=== PATIENT | female | born 1975 | race American Indian/Alaskan Native ===

== ENCOUNTER 2019-02-27 07:38 | Day surgery (SDC) | payer OTHER ==
--- NOTE | 2019-02-26 16:43 | History and Physical Report ---
History of Present Illness Date of examination: 02/23/19 Date of admission: 02/27/19 Chief complaint: here for BTL History of present illness: Visit Type: Pre-Op CC: pre op. History of Present Illness: pt presents for pre op visit ......................................................................Jankichristian Castanon February 23, 2019 9:43 AM Pt desires sterilization. All risk/benefits/alternatives were d/w pt and questions were addressed and answered. She desires removal of the tubes bilaterally. Consents signed and placed on the chart. Pt currently has an IUD in place and desires removal at time of the surgery as well. Again all questions were addressed and answered. Consents given to pt to present at time of surgery. 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 of genital herpes: yes Hx of STD: HSV Other: I/II Active Medications (reviewed today): PROBIOTIC () MULTI VITAMINS () ZOMIG TABLET (ZOLMITRIPTAN TABS) ACYCLOVIR 400 MG ORAL TABLET (ACYCLOVIR) 1 po bid SYNTHRIOD () 100 mcg qdaily Current Allergies (reviewed today): No known allergies Past Medical History: Reviewed history from 11/11/2017 and no changes required: Hyperthyroidism-Graves DZ Past Surgical History: Reviewed history from 11/11/2017 and no changes required: positive-thyroidectomy Social History: Reviewed history from 11/11/2017 and no changes required: Patient is single-engaged does not plan to Smoking History: Patient has never smoked. [facility] Risk Factors: Smoked Tobacco Use: Never smoker Smokeless Tobacco Use: Never Drug use: no HIV high-risk behavior: no Alcohol use: yes Exercise: no Seatbelt use: 100 % PAP Smear History: Date of Last PAP Smear: 11/24/2018 Mammogram History: Date of Last Mammogram: 11/07/2018 Results: Normal Bilateral, per pt Review of Systems General Denies fever, chills, sweats, anorexia, fatigue, weakness, malaise, weight loss and sleep disorder. Denies nausea, vomiting, headache, swelling of legs, abdominal pain, vaginal discharge, vaginal bleeding and contractions. Denies vaginal discharge, incontinence, dysuria, hematuria, urinary frequency, amenorrhea, menorrhagia, abnormal vaginal bleeding, pelvic pain, genital sores, decreased libido, painful periods, painful sex, urinary urgency, hot flashes, vaginal dryness, vaginal itching and vaginal odor. CV Denies chest pains, palpitations, syncope, dyspnea on exertion, orthopnea, PND and peripheral edema. Resp Denies cough, dyspnea at rest, excessive sputum, hemoptysis, wheezing and pleurisy. GI Denies nausea, vomiting, diarrhea, constipation, change in bowel habits, abdominal pain, melena, hematochezia, jaundice, gas/bloating, indigestion/heartburn, dysphagia and odynophagia. Endo Denies cold intolerance, heat intolerance, polydipsia, polyphagia, polyuria and unusual weight change. Breast Denies left breast lump, right breast lump, nipple discharge, bloody discharge from nipple, breast pain, abnormal mammogram and breast enlargement. MS Denies back pain, joint pain, joint swelling, muscle cramps, muscle weakness, stiffness, arthritis, sciatica, restless legs, leg pain at night and leg pain with exertion. Derm Denies rash, itching, dryness and suspicious lesions. Neuro Denies paralysis, paresthesias, headache, seizures, tremors, vertigo, transient blindness, frequent falls, frequent headaches and difficulty walking. Psych Denies depression, anxiety, irritability and mood swings. Eyes Denies blurring, diplopia, irritation, discharge, vision loss, eye pain and photophobia. ENT Denies earache, ear discharge, tinnitus, decreased hearing, nasal congestion, nosebleeds, sore throat and hoarseness. Allergy Denies urticaria, allergic rash, hay fever and recurrent infections. Heme Denies abnormal bruising, bleeding and enlarged lymph nodes. 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 denies: abnormal PAP smear Family/Genetic History: other (see hpi) Social history: no significant social history, single Medications and Allergies Allergies Allergy/AdvReac Type Severity Reaction Status Date / Time No Known Allergies Allergy Verified 02/26/19 09:54 Home Medications Medication Instructions Recorded Confirmed Last Taken Type Levothyroxine [Synthroid] 112 mcg PO QAM 02/26/19 02/26/19 Unknown History Multivitamin Tab [Multiple Vitamin 1 each PO QDAY 02/26/19 02/26/19 Unknown History TAB (Theragran)] Zolmitriptan [Zomig] 2.5 mg PO ONCE PRN 02/26/19 02/26/19 Unknown History Review of Systems All systems: negative - Physical Exam Cardiovascular: Normal S1, Normal S2 Lungs: Positive: Clear to auscultation, Normal air movement Abdomen: Positive: normal appearance, soft. Negative: distention, tenderness, guarding Genitourinary (Female): Positive: other (deferred until EUA) Results All other labs normal. Assessment and Plan - Patient Problems (1) Encounter for sterilization Status: Acute Plan to address problem: -admit -prepare for salpingectomy(removal of both tubes) -consent signed and placed on the chart. (2) Thyroid disease Status: Acute Plan to address problem: -stable on medications
[~2019-02-27 07:38] MED LIST: ceFAZolin/Water 2 GM/20 ML 2 GM/20 ML SYRINGE IV NR
[2019-02-27] MEDS ORDERED: LACTATED RINGERS 1,000 ML ONE ×2 (07:57→09:45)
[2019-02-27] MEDS ORDERED: BUPIVACAINE/PF (0.5%) 5 MG/1 ML 10 ML VIAL INFILTRATI ONE ×2 (08:11→09:28)
[2019-02-27] MEDS ORDERED: ROCURONIUM 50 MG/5 ML INJ IV ONE (08:17)
[2019-02-27] MEDS ORDERED: LIDOCAINE MPF (2%) 20 MG/1 ML VIAL 5 ML ONE (08:17)
[2019-02-27] MEDS ORDERED: PROPOFOL 200 MG/20 ML VIAL IV ONE (08:17)
[2019-02-27] MEDS ORDERED: HYDROmorphone 1 MG/1 ML INJ ONE (08:17)
--- NOTE | 2019-02-27 08:23 | Anesthesia Day of Surgery ---
Anesthesia Day of Surgery - Day of Surgery Patient Examined: Yes Patient H&P Reviewed: Yes Patient is NPO: Yes
--- NOTE | 2019-02-27 08:23 | Anesthesia Consultation ---
Anesthesia Consult and Med Hx Date of service: 02/27/19 - Airway Anesthetic Teeth Evaluation: Good (some missing teeth) ROM Head & Neck: Adequate Mental/Hyoid Distance: Adequate Mallampati Class: Class II Intubation Access Assessment: Probably Good - Pre-Operative Health Status ASA Pre-Surgery Classification: ASA2 Proposed Anesthetic Plan: General - Central Nervous System Hx Psychiatric Problems: No - Endocrine Hx Hypothyroidism: Yes (DUE TO THYROIDECTOMY FOR GOITER) - Other Systems Hx Alcohol Use: Yes Hx Substance Use: No
[2019-02-27] MEDS ORDERED: FAMOTIDINE 20 MG/2 ML INJ IV NR (09:00)
[2019-02-27] MEDS ORDERED: MIDAZOLAM 2 MG/2 ML INJ IV NR (09:00)
[2019-02-27] MEDS ORDERED: LACTATED RINGERS 1,000 ML IV SCH (09:00)
[2019-02-27] MEDS ORDERED: SODIUM CHLORIDE 0.9% IRR 1,500 ML BOTTLE IR ONE (09:28)
[2019-02-27] MEDS ORDERED: ONDANSETRON 4 MG/2 ML INJ ONE (09:39)
[2019-02-27] MEDS ORDERED: KETOROLAC 30 MG/1 ML INJ ONE (09:39)
[2019-02-27] MEDS ORDERED: GLYCOPYRROLATE 0.4 MG/2 ML INJ ONE (09:41)
[2019-02-27] MEDS ORDERED: NEOSTIGMINE 10MG/10 ML INJ MDV ONE (09:41)
--- NOTE | 2019-02-27 10:09 | Operative Report ---
Operative Report Operative Report: Date of procedure: 02/27/2018 Pre-operative diagnosis: Desires permanent sterilization Post-operative diagnosis: Same Procedure name(s): Laparoscopic bilateral salpingectomy Laparoscopic lysis of adhesions Surgeon: Dr. Torre Plaster Tender: Certified surgical scrub asset protection assistant Anesthesia: Gen. endotracheal anesthesia EBL: Minimal Urine output: About 100 mL of clear urine out at the beginning of the procedure Fluids: 1 L Findings: Adhesions of the omentum to the anterior abdominal wall Grossly normal fallopian tubes and ovaries bilaterally IUD string seen protruding out of the cervix no portion of the IUD same protruding out of the cervical os Right peritubular cyst Indications: Patient presents for scheduled sterilization procedure. All risks benefits and alternatives were discussed with the patient. Patient desired bilateral salpingectomy. Procedure: Patient was taken to the operating room and which she was placed under general endotracheal anesthesia. Patient was then prepped and draped in sterile fashion and placed in dorsal lithotomy position in Av stirrups. Attention was then turned to the vagina in which a fine stick was placed was placed. Patient underwent straight catheterization. Attention was then turned to the umbilicus and which an infraumbilical incision was made with the scalpel 5mm trocar was placed using direct visualization with the camera. Abdomen was then insufflated with gas. Under direct visualization a 5 mm and 8 mm trocar were placed. Left fallopian tube was grasp with a grasper elevated cauterized and transected with the tripolar instrument and handed off for pathology. This was repeated on the right side. After tubal ligation was completed all instruments were removed from the abdomen under direct visualization. All gas was also released from the abdomen. The skin was approximated with 4-0 Monocryl in a subcuticular stitch. The patient tolerated procedure well. Sponge, lap, and needle counts were all correct x3 the patient was taken to the recovery room awake and in stable condition.
--- NOTE | 2019-02-27 10:10 | Short Stay Summary ---
Short Stay Documentation - History Social history: no significant social history, single - Allergies and Medications Current Medications: Allergies No Known Allergies Allergy (Verified 02/26/19 09:54) Home Medications Medication Instructions Recorded Confirmed Last Taken Type Levothyroxine [Synthroid] 112 mcg PO QAM 02/26/19 02/27/19 02/26/19 08:00 History Multivitamin Tab [Multiple Vitamin 1 each PO QDAY 02/26/19 02/27/19 02/26/19 0 8:00 History TAB (Theragran)] Zolmitriptan [Zomig] 2.5 mg PO ONCE PRN 02/26/19 02/27/19 02/26/19 08:00 History Ibuprofen [Motrin 800 MG tab] 800 mg PO Q8HR PRN #30 tablet 02/27/19 Unknown Rx oxyCODONE /ACETAMINOPHEN [Percocet 1 tab PO Q4HR #30 tab 02/27/19 Unknown Rx 5/325] Active Medications Famotidine (Pepcid) 20 mg IV PREOP NR Stop: 02/27/19 16:00 Last Admin: 02/27/19 08:35 Dose: 20 mg Documented by: Cefazolin Sodium (Ancef/Sterile Water 2 Gm/20 Ml) 2 gm in 20 mls @ 80 mls/hr IV PREOP NR; Protocol Stop: 02/27/19 23:59 Lactated Ringer's (Lactated Ringers) 1,000 mls @ 100 mls/hr IV DIRECT BALBIR Last Admin: 02/27/19 08:10 Dose: 100 mls/hr Documented by: Midazolam HCl (Versed) 2 mg IV PREOP NR Stop: 02/27/19 23:59 - Discharge Diagnoses (1) Encounter for sterilization Status: Acute (2) Thyroid disease Status: Acute Short Stay Discharge Plan Activity: no restrictions Weight Bearing Status: Weight Bear as Tolerated Diet: regular Follow up with: JHONNY GALO [Other] - 7 Days LEON ACOSTA MD [Staff Physician] - 7 Days Prescriptions: Ibuprofen [Motrin 800 MG tab] 800 mg PO Q8HR PRN #30 tablet PRN Reason: Pain, Moderate (4-6) oxyCODONE /ACETAMINOPHEN [Percocet 5/325] 1 tab PO Q4HR #30 tab
[2019-02-27 10:51] VITALS: BP 117/60
[2019-02-27] MEDS ORDERED: oxyCODONE /ACETAMINOPHEN 5-325MG TAB PO ONE (11:00)
--- NOTE | 2019-02-27 13:46 | Post Anesthesia Evaluation ---
- Post Anesthesia Evaluation Patient Participated: Yes Airway Patent: Yes Stable Respiratory Function: Yes Nausea/Vomiting: Yes Temp > 96.8F: No Pain Manageable: Yes Adequeate Hydration: Yes Anesthesia Complications: No Block Receding Appropriately: Not Applicable Patient on Ventilator: No
== END 2019-02-27 11:21 | disposition home or self-care (01) ==
LOC: OR 07:38
PROVIDERS: ATTEND Obstetrics & Gynecology
DX: Z30.2 Encounter for sterilization (principal); G43.909 Migraine, unspecified, not intractable, without status migrainosus; E78.00 Pure hypercholesterolemia, unspecified; E89.0 Postprocedural hypothyroidism; Z79.899 Other long term (current) drug therapy; Z72.89 Other problems related to lifestyle; Z98.890 Other specified postprocedural states; Z80.1 Family history of malignant neoplasm of trachea, bronchus and lung; Z80.8 Family history of malignant neoplasm of other organs or systems
CPT/HCPCS: 58661; 81025; 88302; J0690; J1170; J1885; J2250; J2405; J2704; J2710; J7120